=== PATIENT | female | born 1995 | race Caucasian/White ===

== ENCOUNTER 2019-02-16 00:10 | Emergency (ER) | payer OTHER ==
--- NOTE | 2019-02-16 00:16 | PDOC ---
History of Present Illness - General Chief Complaint: Urinary Problem Stated Complaint: BURNING ON URINATION/PAIN Time Seen by Provider: 02/16/19 00:14 - History of Present Illness Initial Comments: 02/16/19 00:29 This 23-year-old woman with a history of urinary tract infections( including pyelonephritis for which she was hospitalized in 2011) and kidney stones presents with history of dysuria, urinary urgency/frequency for the last few hours. No history of back pain except for mild left flank pain that patient states is chronic. No history of fever/chills. She had mild nausea earlier today that has now resolved. Most recent UTI was 2015. Patient has a history of iron deficiency anemia but has not taken supplemental iron for the last several months. Patient is currently menstruating NO KNOWN DRUG ALLERGIES Patient does not take any medication on a daily basis Nonsmoker/denies daily alcohol/no other drug use Past History - Past Medical History Allergies/Adverse Reactions: Allergies Allergy/AdvReac Type Severity Reaction Status Date / Time peanut Allergy Verified 02/16/19 00:14 PEANUTBUTTER Allergy Hives Uncoded 02/16/19 00:14 Home Medications: Ambulatory Orders Ciprofloxacin HCl [Cipro] 500 mg PO BID #10 tablet 02/16/19 Phenazopyridine HCl [Pyridium] 200 mg PO TID #6 tablet 02/16/19 - Immunization History Immunization Up to Date: Yes - Suicide/Smoking/Psychosocial Hx Smoking Status: No Number of Cigarettes Smoked Daily: 0 Review of Systems - Review of Systems Able to Perform ROS?: Yes Comments:: 12 point review of systems is negative except for what is noted in the history of present illness *Physical Exam - Physical Exam Comments: GENERAL: Adult female, alert and oriented times 3, in mild distress secondary to suprapubic discomfort HEAD: Normal with no signs of trauma. EYES: PERRLA, EOMI, sclera anicteric, conjunctiva clear. ENT: Ears normal, nares patent, oropharynx clear without exudates. Moist mucous membranes. NECK: Normal range of motion, supple without lymphadenopathy, JVD, or masses. LUNGS: Breath sounds equal, clear to auscultation bilaterally. No wheezes, and no crackles. HEART:Regular rate and rhythm, normal S1 and S2 without murmur, rub or gallop. ABDOMEN:.normal bowel sounds; mild suprapubic tenderness without rebound or guarding; no flank or CVA tenderness EXTREMITIES: Normal range of motion, no edema. No clubbing or cyanosis. No erythema, or tenderness. NEUROLOGICAL: Cranial nerves II through XII grossly intact. Normal speech. No focal neurological deficits. SKIN: Warm, Dry, normal turgor, no rashes or lesions noted. Medical Decision Making - Medical Decision Making Urinalysis/urine C&S/PGU sent. PGU negative Urinalysis dipstick positive for 2+ blood/3+ LE. Microscopic exam consistent with RBCs/wbcs and bacteria. Because patient has a history of pyelonephritis (even though current clinical presentation are consistent with upper tract infection) will treat with ciprofloxacin. The patient has had ciprofloxacin in the past and has tolerated it well. First dose of 500 mg will be given here in the emergency room. The patient will also receive Pyridium 200 mg now. Prescription for Cipro 500 mg twice a day for 5 days and Pyridium 200 mg 3 times a day for 2 days sent to her pharmacy. Patient will be discharged with instructions to drink plenty of water, take medications as prescribed and return to the emergency room if she has more severe pain, especially back pain. Also, she develops fever/chills or vomiting , she should return to the ER. Otherwise, she should follow-up with her primary care physician within the next 5 days. *DC/Admit/Observation/Transfer Diagnosis at time of Disposition: UTI (urinary tract infection) Qualifiers: Urinary tract infection type: acute cystitis Hematuria presence: without hematuria Qualified Code(s): N30.00 - Acute cystitis without hematuria - Discharge Dispostion Disposition: HOME Condition at time of disposition: Stable - Prescriptions Prescriptions: Ciprofloxacin HCl [Cipro] 500 mg PO BID #10 tablet Phenazopyridine HCl [Pyridium] 200 mg PO TID #6 tablet - Referrals - Patient Instructions Printed Discharge Instructions: Urinary Tract Infection Additional Instructions: Drink plenty of water Cipro 500 mg twice a day for 5 days Pyridium 200 mg 3 times a day for the next 2 days Return to the ER if you have back pain/vomiting/fever Follow-up with your primary care doctor within the next 5 days - Post Discharge Activity
[2019-02-16 00:22] VITALS: BP 121/72; PULSE 83; TEMP 97.9; BMI 23.3
[2019-02-16] MEDS ORDERED: IBUPROFEN 600 MG TABLET (FP) PO ONE ×2 (00:46)
[2019-02-16 01:11] LABS: HCG,QUALITATIVE URINE Negative; PH,URINE 6.5 (5.0-8.0); URINE APPEARANCE CLOUDY; URINE BACTERIA 203.1 /hpf (NEGATIVE); URINE BILIRUBIN NEGATIVE (NEGATIVE); URINE CASTS 46 /lpf (0-8); URINE COLOR YELLOW; URINE GLUCOSE (UA) NEGATIVE (NEGATIVE); URINE KETONE NEGATIVE (NEGATIVE); URINE LEUK ESTERASE 3+ (NEGATIVE); URINE NITRITE NEGATIVE (NEGATIVE); URINE PROTEIN TRACE (NEGATIVE); URINE RBC 14 /hpf (0-4); URINE WBC 402 /hpf (0-5)
[2019-02-16] MEDS ORDERED: CIPROFLOXACIN 500 MG TABLET (RESTRICTED TO ID) PO ONE (01:29)
[2019-02-16] MEDS ORDERED: PHENAZOPYRIDINE HCL 100 MG TABLET (FP) PO ONE (01:29)
[2019-02-16] MEDS ORDERED: CIPROFLOXACIN 250 MG TABLET (RESTRICTED TO ID) PO ONE (01:30)
[2019-02-16] MEDS ORDERED: PHENAZOPYRIDINE HCL 100 MG TABLET (FP) ONE (01:30)
== END 2019-02-16 01:42 | disposition home or self-care (01) ==
LOC: FER 00:10
DX: N30.00 Acute cystitis without hematuria (principal)
CPT/HCPCS: 81003; 84703; 87086; 87186; 99281-25

== ENCOUNTER 2021-02-26 07:15 | Emergency (ER) | payer OTHER ==
[2021-02-26] MEDS ORDERED: ALBUTEROL SO4 2.5/IPRATROPIUM 0.5 INH SOL 3 ML VIAL.NEB. NEB ONE ×2 (07:23→07:26)
[2021-02-26] MEDS ORDERED: predniSONE 20 MG TABLET (UD) PO ONE (07:23)
[2021-02-26] MEDS ORDERED: predniSONE 20 MG TABLET (UD) ONE (07:29)
[2021-02-26 07:36] VITALS: BP 121/78; PULSE 79; TEMP 98.2; BMI 25.0
== END 2021-02-26 08:15 | disposition home or self-care (01) ==
LOC: FER 07:15
PROC: 3E0F7GC Introduction of Other Therapeutic Substance into Respiratory Tract, Via Natural or Artificial Opening (ICD-10-PCS; principal; 2021-02-26)
DX: J45.901 Unspecified asthma with (acute) exacerbation (principal)
CPT/HCPCS: 99284-25

== ENCOUNTER 2023-11-21 09:14 | Emergency (ER) | payer OTHER ==
[2023-11-21 09:27] VITALS: BP 149/89; PULSE 76; RESP 18; TEMP 98.9; BMI 27.2
[2023-11-21] MEDS ORDERED: KETOROLAC TROMETHAMINE 30 MG/1 ML VIAL IM ONE (09:40)
[2023-11-21] MEDS ORDERED: oxyCODONE HCL 5 MG TABLET PO ONE (09:40)
[2023-11-21] MEDS ORDERED: BACITRACIN ZINC 15 GM TUBE TOPICAL OINTMENT TP ONE (09:41)
[2023-11-21] MEDS ORDERED: KETOROLAC TROMETHAMINE 30 MG/1 ML VIAL ONE (09:54)
[2023-11-21] MEDS ORDERED: oxyCODONE HCL 5 MG TABLET ONE (09:55)
== END 2023-11-21 12:23 | disposition home or self-care (01) ==
LOC: FER 09:14
PROC: 3E0233Z Introduction of Anti-inflammatory into Muscle, Percutaneous Approach (ICD-10-PCS; principal; 2023-11-21)
DX: T24.211A Burn of second degree of right thigh, initial encounter (principal); T24.212A Burn of second degree of left thigh, initial encounter; T24.231A Burn of second degree of right lower leg, initial encounter; T21.22XA Burn of second degree of abdominal wall, initial encounter; T31.10 Burns involving 10-19% of body surface with 0% to 9% third degree burns; X10.0XXA Contact with hot drinks, initial encounter
CPT/HCPCS: 99284-25